=== PATIENT | male | born 1960 | race Caucasian/White ===

== ENCOUNTER 2019-12-13 14:23 | Emergency (ER) | payer BC, OTHER ==
[2019-12-13 15:34] VITALS: BP 117/71; PULSE 76
--- NOTE | 2019-12-13 16:01 | EDM.PDOC ---
ED HPI GENERAL MEDICAL PROBLEM - General Chief Complaint: Respiratory Problem Stated Complaint: COVID +/SOB Time Seen by Provider: 12/13/19 14:34 Source of Information: Reports: Patient History Limitations: Reports: No Limitations - History of Present Illness INITIAL COMMENTS - FREE TEXT/NARRATIVE: Patient is a 59-year-old male presenting to the emergency department with compla ints of cough and shortness of breath with a known diagnosis of COVID-19. Patient states he was diagnosed as Covid +7 days ago. Initial symptoms started as body aches and fatigue. He gradually developed a cough and states since yesterday that he feels more short of breath and left-sided rib pain with deep breathing. He has had intermittent fevers throughout the course, however does not have documentation of how high they went. He denies any abdominal pain, nausea, vomiting, or diarrhea. He has not lost his taste or smell. Appetite is per normal. He denies any underlying chronic medical conditions. Vital signs in triage were stable. Patient's oxygen saturation is 97% on room air. He is afebrile at 97.2. Pulse 85, respiratory rate 16, blood pressure 137/83. - Related Data Allergies Allergy/AdvReac Type Severity Reaction Status Date / Time No Known Allergies Allergy Verified 12/13/19 14:35 Home Meds: Home Meds Cephalexin [Keflex] 250 mg PO DAILY 03/08/15 [History] Past Medical History Musculoskeletal History: Reports: Fracture - Infectious Disease History Infectious Disease History: Reports: Novel Coronavirus - Past Surgical History HEENT Surgical History: Reports: Tonsillectomy GI Surgical History: Reports: Hernia, Inguinal Musculoskeletal Surgical History: Reports: Arthroscopic Knee Social & Family History - Tobacco Use Tobacco Use Status *Q: Never Tobacco User Second Hand Smoke Exposure: No - Recreational Drug Use Recreational Drug Use: No ED ROS GENERAL - Review of Systems Review Of Systems: See Below Constitutional: Reports: Fever, Chills, Fatigue HEENT: Reports: No Symptoms Respiratory: Reports: Shortness of Breath, Pleuritic Chest Pain (Left-sided), Cough, Sputum. Denies: Wheezing Endocrine: Reports: No Symptoms GI/Abdominal: Reports: No Symptoms : Reports: No Symptoms Musculoskeletal: Reports: Other (Generalized body aches) Skin: Reports: No Symptoms Neurological: Reports: No Symptoms Psychiatric: Reports: No Symptoms Hematologic/Lymphatic: Reports: No Symptoms Immunologic: Reports: No Symptoms ED EXAM, GENERAL - Physical Exam Exam: See Below General Appearance: Alert, WD/WN, No Apparent Distress Respiratory/Chest: No Respiratory Distress, Lungs Clear, Normal Breath Sounds, No Accessory Muscle Use, Chest Non-Tender Cardiovascular: Normal Peripheral Pulses, Regular Rate, Rhythm, No Edema, No Gallop, No JVD, No Murmur, No Rub GI/Abdominal: Normal Bowel Sounds, Soft, Non-Tender, No Organomegaly, No Distention, No Abnormal Bruit, No Mass Neurological: Alert, Oriented, CN II-XII Intact, Normal Cognition, Normal Gait, Normal Reflexes, No Motor/Sensory Deficits Psychiatric: Normal Affect, Normal Mood Course - Vital Signs Last Recorded V/S: Last Vital Signs Temp 97.2 F 12/13/19 14:33 Pulse 76 12/13/19 15:30 Resp 16 12/13/19 14:33 BP 117/71 12/13/19 15:30 Pulse Ox 96 12/13/19 15:30 - Orders/Labs/Meds Orders: Active Orders 24 hr Category Date Time Status EKG Documentation Completion [RC] STAT Care 12/13/19 14:43 Active Chest 1V Frontal [CR] Stat Exams 12/13/19 14:36 Taken FERRITIN [CHEM] Routine Lab 12/13/19 15:10 Received Labs: Laboratory Tests 12/13/19 12/13/19 12/13/19 Range/Units 15:10 15:10 15:10 WBC 8.68 (4.23-9.07) K/mm3 RBC 4.89 (4.63-6.08) M/mm3 Hgb 15.7 (13.7-17.5) gm/dl Hct 46.1 (40.1-51.0) % MCV 94.3 H (79.0-92.2) fl MCH 32.1 (25.7-32.2) pg MCHC 34.1 (32.2-35.5) g/dl RDW Std Deviation 42.1 (35.1-43.9) fL Plt Count 202 (163-337) K/mm3 MPV 10.1 (9.4-12.3) fl Neut % (Auto) 80.1 H (34.0-67.9) % Lymph % (Auto) 10.1 L (21.8-53.1) % Tate % (Auto) 9.4 (5.3-12.2) % Eos % (Auto) 0.1 L (0.8-7.0) Baso % (Auto) 0.1 (0.1-1.2) % Neut # (Auto) 6.94 H (1.78-5.38) K/mm3 Lymph # (Auto) 0.88 L (1.32-3.57) K/mm3 Tate # (Auto) 0.82 (0.30-0.82) K/mm3 Eos # (Auto) 0.01 L (0.04-0.54) K/mm3 Baso # (Auto) 0.01 (0.01-0.08) K/mm3 D-Dimer, Quantitative 0.26 (0.19-0.50) mg/L Sodium 137 (136-145) mEq/L Potassium 3.7 (3.5-5.1) mEq/L Chloride 100 (98-107) mEq/L Carbon Dioxide 29 (21-32) mEq/L Anion Gap 11.7 (5-15) BUN 14 (7-18) mg/dL Creatinine 1.1 (0.7-1.3) mg/dL Est Cr Clr Drug Dosing 77.01 mL/min Estimated GFR (MDRD) > 60 (>60) mL/min BUN/Creatinine Ratio 12.7 L (14-18) Glucose 110 H (74-106) mg/dL Lactic Acid (0.4-2.0) mmol/L Calcium 8.7 (8.5-10.1) mg/dL Total Bilirubin 1.0 (0.2-1.0) mg/dL AST 13 L (15-37) U/L ALT 38 (16-63) U/L Alkaline Phosphatase 50 (46-116) U/L Troponin I < 0.017 (0.00-0.056) ng/mL C-Reactive Protein 10.2 H* (<1.0) mg/dL Total Protein 7.4 (6.4-8.2) g/dl Albumin 3.4 (3.4-5.0) g/dl Globulin 4.0 gm/dL Albumin/Globulin Ratio 0.9 L (1-2) 10/24/20 Range/Units 15:10 WBC (4.23-9.07) K/mm3 RBC (4.63-6.08) M/mm3 Hgb (13.7-17.5) gm/dl Hct (40.1-51.0) % MCV (79.0-92.2) fl MCH (25.7-32.2) pg MCHC (32.2-35.5) g/dl RDW Std Deviation (35.1-43.9) fL Plt Count (163-337) K/mm3 MPV (9.4-12.3) fl Neut % (Auto) (34.0-67.9) % Lymph % (Auto) (21.8-53.1) % Tate % (Auto) (5.3-12.2) % Eos % (Auto) (0.8-7.0) Baso % (Auto) (0.1-1.2) % Neut # (Auto) (1.78-5.38) K/mm3 Lymph # (Auto) (1.32-3.57) K/mm3 Tate # (Auto) (0.30-0.82) K/mm3 Eos # (Auto) (0.04-0.54) K/mm3 Baso # (Auto) (0.01-0.08) K/mm3 D-Dimer, Quantitative (0.19-0.50) mg/L Sodium (136-145) mEq/L Potassium (3.5-5.1) mEq/L Chloride (98-107) mEq/L Carbon Dioxide (21-32) mEq/L Anion Gap (5-15) BUN (7-18) mg/dL Creatinine (0.7-1.3) mg/dL Est Cr Clr Drug Dosing mL/min Estimated GFR (MDRD) (>60) mL/min BUN/Creatinine Ratio (14-18) Glucose (74-106) mg/dL Lactic Acid 1.5 (0.4-2.0) mmol/L Calcium (8.5-10.1) mg/dL Total Bilirubin (0.2-1.0) mg/dL AST (15-37) U/L ALT (16-63) U/L Alkaline Phosphatase (46-116) U/L Troponin I (0.00-0.056) ng/mL C-Reactive Protein (<1.0) mg/dL Total Protein (6.4-8.2) g/dl Albumin (3.4-5.0) g/dl Globulin gm/dL Albumin/Globulin Ratio (1-2) - Re-Assessments/Exams Free Text/Narrative Re-Assessment/Exam: Patient is a 59-year-old male presenting to the emergency department with complaints of worsening shortness of breath and left-sided chest discomfort with breathing with a known diagnosis of COVID-19. Oxygen saturations on room air were 97%. I have ordered a chest x-ray, CBC, CMP, CRP, D-dimer, troponin, ferritin, LDH, EKG. 12/13/19 15:58 Chest x-ray showed small multiple right-sided infiltrates. Hematology was grossly unremarkable with the exception of CRP being elevated at 10.2. Troponin and D-dimer were both negative. Patient has maintain oxygen saturation between 95 and 98% on room air throughout his stay in the ER. Discussed I would recommend that he purchase a home pulse oximeter to monitor his oxygen saturations. He may otherwise continue symptomatic treatment including Tylenol and ibuprofen as needed. Discussed return precautions. Discharge instructions as documented. Departure - Departure Time of Disposition: 16:01 Disposition: Home, Self-Care 01 Condition: Good Clinical Impression: COVID-19 - Discharge Information *PRESCRIPTION DRUG MONITORING PROGRAM REVIEWED*: No *COPY OF PRESCRIPTION DRUG MONITORING REPORT IN PATIENT ROWENA: No Instructions: COVID-19 Frequently Asked Questions, COVID-19 Referrals: PCP,None [Primary Care Provider] - Additional Instructions: You were seen in the emergency department for shortness of breath and left-sided rib pain with deep breathing with a known diagnosis of COVID-19. Your work-up included a chest x-ray, EKG of your heart, and blood work. Results of your work-up were found to be overall normal in light of your diagnosis of COVID-19. There are a couple small infiltrates in your right lung which be consistent with a mild viral pneumonia. Your oxygen saturation throughout your stay in the ER was normal. I would recommend that you purchase a home pulse oximeter to monitor your oxygen saturations at home as this is your best indicator of how you are doing overall. You may call up to [facility] to see if they have them available. If [facility] does not have one available, most [facility], [facility], and [facility] also carry them. Recommend that you check your oxygen saturations intermittently throughout the day. If you are maintaining an oxygen saturation below 90%, this indicates that you are hypoxic and should seek medical attention. If you experience any other new or worsening symptoms of concern, please do not hesitate to return to the emergency department for reevaluation. Sepsis Event Note (ED) - Evaluation Sepsis Screening Result: No Definite Risk - Focused Exam Vital Signs: Vital Signs Temp Pulse Resp BP Pulse Ox 12/13/19 15:30 76 117/71 96 12/13/19 14:33 97.2 F 85 16 137/83 97 - My Orders Last 24 Hours: My Active Orders 12/13/19 14:36 Chest 1V Frontal [CR] Stat 12/13/19 14:43 EKG Documentation Completion [RC] STAT 12/13/19 15:10 FERRITIN [CHEM] Routine - Assessment/Plan Last 24 Hours: My Active Orders 12/13/19 14:36 Chest 1V Frontal [CR] Stat 12/13/19 14:43 EKG Documentation Completion [RC] STAT 12/13/19 15:10 FERRITIN [CHEM] Routine
== END 2019-12-13 16:15 | disposition home or self-care (01) ==
LOC: JD.ED 14:23
DX: U07.1 COVID-19 (principal); Z90.49 Acquired absence of other specified parts of digestive tract
CPT/HCPCS: 36415; 71045; 80053; 82728; 83605; 84484; 85025; 85379; 86140; 93005; 93010; 99282; 99284-25

== ENCOUNTER 2019-12-18 01:22 | Emergency (ER) | payer BC ==
[2019-12-18] MEDS ORDERED: Sodium Chloride 0.9% 10 ML Syringe FLUSH PRN (01:39)
--- NOTE | 2019-12-18 01:43 | EDM.PDOC ---
ED HPI GENERAL MEDICAL PROBLEM - General Chief Complaint: Respiratory Problem Stated Complaint: COVID POS Time Seen by Provider: 12/18/19 01:38 Source of Information: Reports: Patient, RN Notes Reviewed - History of Present Illness INITIAL COMMENTS - FREE TEXT/NARRATIVE: 59 yr old male diagnosed with covid infection about 13 days ago. He became more short of breath last evening and sats at home dropped from mid 90's to around around 87 at home. He has to cough with deep breathing so does try to avoid that. He also feels that he is getting dehydrated. He has no underlying health problems, does not smoke. No appetite, No vomiting or diarrhea. Left Lower Abdomen Pain Score (Numeric/FACES): 6 - Related Data Allergies Allergy/AdvReac Type Severity Reaction Status Date / Time No Known Allergies Allergy Verified 12/18/19 01:30 Home Meds: Home Meds Acetaminophen/HYDROcodone [[place] 325-5 MG] 1 tab PO Q4H PRN #14 tablet 12/18/19 [Rx] Past Medical History Musculoskeletal History: Reports: Fracture - Infectious Disease History Infectious Disease History: Reports: Novel Coronavirus - Past Surgical History HEENT Surgical History: Reports: Tonsillectomy GI Surgical History: Reports: Appendectomy, Hernia, Inguinal Musculoskeletal Surgical History: Reports: Arthroscopic Knee Social & Family History - Tobacco Use Tobacco Use Status *Q: Never Tobacco User - Caffeine Use Caffeine Use: Reports: None - Recreational Drug Use Recreational Drug Use: No ED ROS GENERAL - Review of Systems Review Of Systems: See Below Constitutional: Reports: Fever (low grade), Chills HEENT: Reports: Rhinitis Respiratory: Reports: Shortness of Breath, Pleuritic Chest Pain, Cough Cardiovascular: Reports: Lightheadedness GI/Abdominal: Reports: Decreased Appetite. Denies: Abdominal Pain, Nausea, Vomiting Musculoskeletal: Reports: Other Skin: Denies: Rash Neurological: Reports: Dizziness, Headache ED EXAM, GENERAL - Physical Exam Exam: See Below General Appearance: Alert, No Apparent Distress Head: Atraumatic Neck: Supple Respiratory/Chest: No Respiratory Distress, Lungs Clear, Normal Breath Sounds. No: Rhonchi, Wheezing Cardiovascular: Regular Rate, Rhythm GI/Abdominal: Non-Tender Extremities: Normal Range of Motion. No: Pedal Edema, Leg Pain, Redness Neurological: Alert, Oriented, No Motor/Sensory Deficits Skin Exam: Warm, Dry, Normal Color #1 Interpretation EKG Date: 12/18/19 Rhythm: NSR Meredith: Normal P-Wave: Present QRS: Normal ST-T: Normal Course - Vital Signs Last Recorded V/S: Last Vital Signs Temp 99.1 F 12/18/19 01:27 Pulse 65 12/18/19 05:00 Resp 16 12/18/19 02:45 BP 121/67 12/18/19 05:00 Pulse Ox 91 L 12/18/19 05:00 - Orders/Labs/Meds Orders: Active Orders 24 hr Category Date Time Status EKG 12 Lead [EKG Documentation Completion] [RC] ROUTINE Care 12/18/19 01:25 Active Oxygen Therapy [RC] ASDIRECTED Care 12/18/19 01:39 Active Peripheral IV Care [RC] . DIRECTED Care 12/18/19 01:40 Active Chest 1V Frontal [CR] Stat Exams 12/18/19 01:38 Taken Acetaminophen/HYDROcodone [[place] 325-5 MG] Med 12/18/19 06:29 Once 1 tab PO ONETIME ONE Sodium Chloride 0.9% [Normal Saline] 1,000 ml Med 12/18/19 02:45 Active IV ONETIME Sodium Chloride 0.9% [Saline Flush] Med 12/18/19 01:39 Active 10 ml FLUSH ASDIRECTED PRN Peripheral IV Insertion Adult [OM.PC] Stat Oth 12/18/19 01:39 Ordered Medication Orders Sodium Chloride (Normal Saline) 1,000 mls @ 999 mls/hr IV ONETIME NICOLE Last Admin: 12/18/19 02:46 Dose: 999 mls/hr Documented by: ELIZABETH Sodium Chloride (Saline Flush) 10 ml FLUSH ASDIRECTED PRN PRN Reason: Keep Vein Open Last Admin: 12/18/19 01:56 Dose: 10 ml Documented by: ELIZABETH Labs: Laboratory Tests 12/18/19 12/18/19 12/18/19 Range/Units 01:35 01:35 01:35 WBC 6.35 (4.23-9.07) K/mm3 RBC 4.74 (4.63-6.08) M/mm3 Hgb 15.2 (13.7-17.5) gm/dl Hct 43.6 (40.1-51.0) % MCV 92.0 (79.0-92.2) fl MCH 32.1 (25.7-32.2) pg MCHC 34.9 (32.2-35.5) g/dl RDW Std Deviation 41.3 (35.1-43.9) fL Plt Count 288 D (163-337) K/mm3 MPV 9.7 (9.4-12.3) fl Neut % (Auto) 79.4 H (34.0-67.9) % Lymph % (Auto) 11.7 L (21.8-53.1) % Lamb % (Auto) 8.0 (5.3-12.2) % Eos % (Auto) 0.3 L (0.8-7.0) Baso % (Auto) 0.3 (0.1-1.2) % Neut # (Auto) 5.04 (1.78-5.38) K/mm3 Lymph # (Auto) 0.74 L (1.32-3.57) K/mm3 Lamb # (Auto) 0.51 (0.30-0.82) K/mm3 Eos # (Auto) 0.02 L (0.04-0.54) K/mm3 Baso # (Auto) 0.02 (0.01-0.08) K/mm3 Manual Slide Review Abnormal smear D-Dimer, Quantitative (0.19-0.50) mg/L Sodium 136 (136-145) mEq/L Potassium 3.3 L (3.5-5.1) mEq/L Chloride 98 (98-107) mEq/L Carbon Dioxide 24 (21-32) mEq/L Anion Gap 17.3 H (5-15) BUN 15 (7-18) mg/dL Creatinine 1.0 (0.7-1.3) mg/dL Est Cr Clr Drug Dosing 84.71 mL/min Estimated GFR (MDRD) > 60 (>60) mL/min BUN/Creatinine Ratio 15.0 (14-18) Glucose 114 H (74-106) mg/dL Calcium 8.5 (8.5-10.1) mg/dL Ferritin (26-388) ng/ml Total Bilirubin 0.6 (0.2-1.0) mg/dL AST 68 H (15-37) U/L ALT 82 H (16-63) U/L Alkaline Phosphatase 60 (46-116) U/L Lactate Dehydrogenase 311 H (85-227) U/L C-Reactive Protein 11.7 H* (<1.0) mg/dL Total Protein 7.5 (6.4-8.2) g/dl Albumin 2.8 L (3.4-5.0) g/dl Globulin 4.7 gm/dL Albumin/Globulin Ratio 0.6 L (1-2) 12/18/19 12/18/19 Range/Units 01:35 01:35 WBC (4.23-9.07) K/mm3 RBC (4.63-6.08) M/mm3 Hgb (13.7-17.5) gm/dl Hct (40.1-51.0) % MCV (79.0-92.2) fl MCH (25.7-32.2) pg MCHC (32.2-35.5) g/dl RDW Std Deviation (35.1-43.9) fL Plt Count (163-337) K/mm3 MPV (9.4-12.3) fl Neut % (Auto) (34.0-67.9) % Lymph % (Auto) (21.8-53.1) % Lamb % (Auto) (5.3-12.2) % Eos % (Auto) (0.8-7.0) Baso % (Auto) (0.1-1.2) % Neut # (Auto) (1.78-5.38) K/mm3 Lymph # (Auto) (1.32-3.57) K/mm3 Lamb # (Auto) (0.30-0.82) K/mm3 Eos # (Auto) (0.04-0.54) K/mm3 Baso # (Auto) (0.01-0.08) K/mm3 Manual Slide Review D-Dimer, Quantitative 1.08 H (0.19-0.50) mg/L Sodium (136-145) mEq/L Potassium (3.5-5.1) mEq/L Chloride (98-107) mEq/L Carbon Dioxide (21-32) mEq/L Anion Gap (5-15) BUN (7-18) mg/dL Creatinine (0.7-1.3) mg/dL Est Cr Clr Drug Dosing mL/min Estimated GFR (MDRD) (>60) mL/min BUN/Creatinine Ratio (14-18) Glucose (74-106) mg/dL Calcium (8.5-10.1) mg/dL Ferritin 4746 H (26-388) ng/ml Total Bilirubin (0.2-1.0) mg/dL AST (15-37) U/L ALT (16-63) U/L Alkaline Phosphatase (46-116) U/L Lactate Dehydrogenase (85-227) U/L C-Reactive Protein (<1.0) mg/dL Total Protein (6.4-8.2) g/dl Albumin (3.4-5.0) g/dl Globulin gm/dL Albumin/Globulin Ratio (1-2) Meds: Medications Generic Name Dose Route Start Last Admin Trade Name Freq PRN Reason Stop Dose Admin Sodium Chloride 1,000 mls @ 999 mls/hr 12/18/19 02:45 12/18/19 02:46 Normal Saline IV 999 mls/hr ONETIME NICOLE Administration Sodium Chloride 10 ml 12/18/19 01:39 12/18/19 01:56 Saline Flush FLUSH 10 ml ASDIRECTED PRN Administration Keep Vein Open - Re-Assessments/Exams Free Text/Narrative Re-Assessment/Exam: 12/18/19 03:30. Was strongly considering hospital admission with change in condition over the last day, sats running 85 to 88 percent at home [employer], 90 on arrival to ED, CXR shows bilat infiltrates, not severe but increased from CXR of 5 days ago. However sats have now been improving with sats now running in the 94 to 95 % range. Will observe him for a few hours, give some cautious IV fluid, he feels dehydrated and than make disposition decision around 6:30 AM. 12/18/19 06:12. Sats running 91 to 93 % room air. He really is not a candidate for hospital admission at this time. Will discuss giving him a hydrocodone to help relieve the pain of deep breathing and send a prescription to use as needed. Departure - Departure Time of Disposition: 06:30 Disposition: Home, Self-Care 01 Condition: Fair Clinical Impression: Pneumonia due to COVID-19 virus - Discharge Information Prescriptions: Acetaminophen/HYDROcodone [[place] 325-5 MG] 1 tab PO Q4H PRN #14 tablet PRN Reason: Pain Referrals: PCP,None [Primary Care Provider] - Forms: ED Department Discharge Additional Instructions: Continue to rest. Drink plenty of water to maintain hydration. Tylenol q 6 to 8 hr for mild to moderate discomfort or hydrocodone 1 tab q 4 to 6 hr for more severe discomfort. That should help you take deep breaths, try take a few deep breaths every 1 to 2 hrs while awake to help open up the small air pockets of your lungs to help you oxygenate better. Return to ED if you feel like you are not getting enough air or if symptoms otherwise worsening in any way. Sepsis Event Note (ED) - Evaluation Sepsis Screening Result: No Definite Risk - Focused Exam Vital Signs: Vital Signs Temp Pulse Resp BP Pulse Ox Pulse Ox 12/18/19 05:00 65 121/67 91 L 12/18/19 02:45 70 16 117/81 94 L 12/18/19 01:39 94 L 12/18/19 01:27 99.1 F 64 18 136/68 89 L - My Orders Last 24 Hours: My Active Orders 12/18/19 01:25 EKG 12 Lead [EKG Documentation Completion] [RC] ROUTINE 12/18/19 01:38 Chest 1V Frontal [CR] Stat 12/18/19 01:39 Oxygen Therapy [RC] ASDIRECTED Sodium Chloride 0.9% [Saline Flush] 10 ml FLUSH ASDIRECTED PRN Peripheral IV Insertion Adult [OM.PC] Stat 12/18/19 01:40 Peripheral IV Care [RC] . DIRECTED 12/18/19 02:45 Sodium Chloride 0.9% [Normal Saline] 1,000 ml IV ONETIME 12/18/19 06:29 Acetaminophen/HYDROcodone [[place] 325-5 MG] 1 tab PO ONETIME ONE - Assessment/Plan Last 24 Hours: My Active Orders 12/18/19 01:25 EKG 12 Lead [EKG Documentation Completion] [RC] ROUTINE 12/18/19 01:38 Chest 1V Frontal [CR] Stat 12/18/19 01:39 Oxygen Therapy [RC] ASDIRECTED Sodium Chloride 0.9% [Saline Flush] 10 ml FLUSH ASDIRECTED PRN Peripheral IV Insertion Adult [OM.PC] Stat 12/18/19 01:40 Peripheral IV Care [RC] . DIRECTED 12/18/19 02:45 Sodium Chloride 0.9% [Normal Saline] 1,000 ml IV ONETIME 12/18/19 06:29 Acetaminophen/HYDROcodone [[place] 325-5 MG] 1 tab PO ONETIME ONE
[2019-12-18] MEDS ORDERED: Sodium Chloride 0.9% 1,000 ML IV SCH (02:45)
[2019-12-18] MEDS ORDERED: Acetaminophen/HYDROcodone 325-5 MG Tab PO ONE (06:29)
[2019-12-18 06:35] VITALS: BP 113/84; PULSE 62
--- NOTE | 2019-12-18 14:05 | CR ---
PROCEDURE INFORMATION: Exam: XR Chest, 1 View Exam date and time: 12/18/2019 1:32 AM Age: 59 years old Clinical indication: Cough and dyspnea and other: Hypoxia; Patient HX: Covid positive TECHNIQUE: Imaging protocol: XR of the chest Views: 1 view. COMPARISON: CR Chest 1V Frontal 12/13/2019 2:25 PM FINDINGS: Lungs: There are multifocal airspace opacities in the perihilar region and bilateral lung bases new on the left and increased on the right compared to 12/13/2019. Pleural space: Unremarkable. No pleural effusion. No pneumothorax. Heart/Mediastinum: Unremarkable. No cardiomegaly. Bones/joints: Postoperative changes from prior lower cervical spine fusion. IMPRESSION: Multifocal airspace opacities bilaterally new on the left and increased on the right compared to 12/13/2019. Differential considerations include multifocal pneumonia, either bacterial or viral. Stat report submitted to the referring service. Thank you for allowing us to participate in the care of your patient. Dictated and Authenticated by: Latisha Alfonso MD 12/18/2019 3:28 AM Central Time ([place] & [place]) MTDD
== END 2019-12-18 06:50 | disposition home or self-care (01) ==
LOC: JD.ED 01:22
DX: U07.1 COVID-19 (principal); J12.89 Other viral pneumonia
CPT/HCPCS: 36415; 71045; 80053; 82728; 83615; 85025; 85379; 86140; 93005; 99285; A9270; J7030; 93010; 99284

== ENCOUNTER 2020-04-08 08:19 | Day surgery (SDC) | payer BC ==
[~2020-04-08 08:19] MED LIST: Acetaminophen 325 MG Tab PO SCH; Lidocaine 1%/Sod Bicarbonate in NS 8.4% 1 ML Syringe IDERM PRN; Morphine 8 MG, EPINEPHrine 0.3 MG, Cefuroxime 750 MG, Ketorolac 30 MG, Sodium Chloride ... PRN; Pregabalin 25 MG Cap PO SCH; Sodium Chloride 0.9% 10 ML Syringe FLUSH PRN; oxyCODONE ER 10 MG TAB.ER PO SCH
[2020-04-08] MEDS: Lactated Ringers 1,000 ML IV SCH ×2 (08:40→14:05)
[2020-04-08] MEDS ORDERED: Scopolamine 1.5 MG Transdermal Patch TOP ONE (08:44)
--- NOTE | 2020-04-08 09:05 | PCM.PREANE ---
Preanesthetic Assessment - Procedure Proposed Procedure: Right knee replacement - Anesthesia/Transfusion/Family Hx Anesthesia History: Prior Anesthesia Reaction (nausea) Family History of Anesthesia Reaction: No Transfusion History: No Prior Transfusion(s) - Review of Systems General: No Symptoms Pulmonary: No Symptoms, Shortness of Breath Cardiovascular: No Symptoms Gastrointestinal: No Symptoms Neurological: No Symptoms Other: Reports: None - Physical Assessment NPO Status Date: 04/07/20 NPO Status Time: 00:00 Height: 1.8 m Weight: 87 kg ASA Class: 2 Mental Status: Alert & Oriented x3 Airway Class: Mallampati = 1 Dentition: Reports: Normal Dentition, Eccles(s) Thyro-Mental Finger Breadths: 3 Mouth Opening Finger Breadths: 3 ROM/Head Extension: Full Lungs: Clear to Auscultation, Normal Respiratory Effort Cardiovascular: Regular Rate, Regular Rhythm - Lab Values: Laboratory Last Values MRSA (PCR) Negative 03/19/20 09:32 - Imaging/EKG Impressions: EKG SR rate 61 - Allergies Allergies/Adverse Reactions: Allergies Allergy/AdvReac Type Severity Reaction Status Date / Time No Known Allergies Allergy Verified 04/07/20 14:12 - Anesthesia Plan Pre-Op Medication Ordered: None - Acknowledgements Anesthesia Type Planned: Spinal, Regional Block (femoral block for post-op pain) Pt an Appropriate Candidate for the Planned Anesthesia: Yes Alternatives and Risks of Anesthesia Discussed w Pt/Guardian: Yes Pt/Guardian Understands and Agrees with Anesthesia Plan: Yes PreAnesthesia Questionnaire HEENT History: Reports: None Cardiovascular History: Reports: None Respiratory History: Reports: None Genitourinary History: Reports: None REINFORCED IRONWORKER History: Reports: None Musculoskeletal History: Reports: Fracture Neurological History: Reports: None Psychiatric History: Reports: None Endocrine/Metabolic History: Reports: None Hematologic History: Reports: None Immunologic History: Reports: None Oncologic (Cancer) History: Reports: None Dermatologic History: Reports: None - Infectious Disease History Infectious Disease History: - Past Surgical History Head Surgeries/Procedures: Reports: None HEENT Surgical History: Reports: Tonsillectomy Cardiovascular Surgical History: Reports: None Respiratory Surgical History: Reports: None GI Surgical History: Reports: Appendectomy, Hernia, Inguinal Female Surgical History: Reports: None Male Surgical History: Reports: None Endocrine Surgical History: Reports: None Neurological Surgical History: Reports: C-Spine Musculoskeletal Surgical History: Reports: Arthroscopic Knee, Shoulder Surgery Oncologic Surgical History: Reports: None Dermatological Surgical History: Reports: None - SUBSTANCE USE Tobacco Use Status *Q: Never Tobacco User Tobacco Use Within Last Twelve Months: No Second Hand Smoke Exposure: No Days Per Week of Alcohol Use: 1 Number of Drinks Per Day: 7 Total Drinks Per Week: 7 Recreational Drug Use History: No - HOME MEDS Home Medications: Home Meds Acetaminophen/HYDROcodone [[place] 325-5 MG] 1 - 2 tab PO Q6H PRN #40 tablet 04/07/20 [Rx] Aspirin [Aspirin EC] 325 mg PO BID #84 tab 04/07/20 [Rx] Cyclobenzaprine [Flexeril] 10 mg PO BID PRN #20 tab 04/07/20 [Rx] - CURRENT (IN HOUSE) MEDS Current Meds: Current Medications Acetaminophen (Tylenol) 975 mg PO ONETIME NICOLE Stop: 04/08/20 13:00 Last Admin: 04/08/20 08:48 Dose: 975 mg Documented by: Morphine Sulfate 8 mg/Epinephrine HCl 0.3 mg/Cefuroxime Sodium 750 mg/Ketorolac Tromethamine 30 mg/Sodium Chloride 7.9 ml 0 mg .XX ASDIRECTED PRN PRN Reason: Pain Stop: 04/08/20 18:00 Lactated Ringer's (Ringers, Lactated) 1,000 mls @ 125 mls/hr IV ASDIRECTED NICOLE Stop: 04/08/20 23:00 Last Admin: 04/08/20 08:40 Dose: 125 mls/hr Documented by: Lidocaine/Sodium Bicarbonate (Buffered Lidocaine 1% In Ns 8.4%) 0.25 ml IDERM ONETIME PRN PRN Reason: Prior to IV Start Stop: 04/08/20 18:00 Last Admin: 04/08/20 08:40 Dose: 0.25 ml Documented by: Oxycodone HCl (Oxycontin) 10 mg PO ONETIME NICOLE Stop: 04/08/20 13:00 Last Admin: 04/08/20 08:46 Dose: 10 mg Documented by: Pregabalin (Lyrica) 50 mg PO ONETIME NICOLE Stop: 04/08/20 13:00 Last Admin: 04/08/20 08:46 Dose: 50 mg Documented by: Sodium Chloride (Saline Flush) 10 ml FLUSH ASDIRECTED PRN PRN Reason: Keep Vein Open Stop: 04/08/20 18:00 Discontinued Medications Scopolamine (Transderm-Scop) 1.5 mg TOP ONETIME ONE Stop: 04/08/20 08:45
[2020-04-08] MEDS ORDERED: Ondansetron 4 MG/2 ML SDV ONE (09:18)
[2020-04-08] MEDS ORDERED: Lidocaine 1% 4 ML ONE (09:18)
[2020-04-08] MEDS ORDERED: fentaNYL 100 MCG/2 ML SDV ONE (09:18)
[2020-04-08] MEDS ORDERED: Midazolam 1 MG/ML 2 ML SDV ONE (09:18)
[2020-04-08] MEDS ORDERED: Propofol 200 MG/20 ML SDV ONE ×4 (09:18→10:45)
[2020-04-08] MEDS ORDERED: Vancomycin 1 GM SDV ONE (09:51)
[2020-04-08] MEDS ORDERED: ceFAZolin 1 GM Vial ONE (09:51)
[2020-04-08] MEDS ORDERED: Lactated Ringers 1,000 ML ONE (09:54)
[2020-04-08] MEDS ORDERED: Ketorolac 30 MG/ML SDV ONE (10:04)
[2020-04-08] MEDS ORDERED: ePHEDrine 50 MG/ML SDV ONE (10:55)
--- NOTE | 2020-04-08 11:24 | PCM.POSTAN ---
POST ANESTHESIA ASSESSMENT - MENTAL STATUS Mental Status: Alert, Oriented - VITAL SIGNS Vital Signs: Last Vital Signs Temp 36.6 C 04/08/20 08:15 Pulse 59 L 04/08/20 08:15 Resp 18 04/08/20 08:15 BP 131/72 04/08/20 08:15 Pulse Ox 98 04/08/20 08:15 - RESPIRATORY Respiratory Status: Respiratory Rate WNL, Airway Patent, O2 Saturation Stable, Supplemental Oxygen - CARDIOVASCULAR CV Status: Pulse Rate WNL, Blood Pressure Stable - GASTROINTESTINAL GI Status: No Symptoms - PAIN Pain Score: 0 - POST OP HYDRATION Hydration Status: Adequate & Stable - OBSERVATIONS Free Text/Narrative:: no anesthesia complications noted
[2020-04-08] MEDS ORDERED: Ropivacaine 0.5% 5 MG/ML 30 ML SDV ONE (11:28)
--- NOTE | 2020-04-08 11:48 | PCM.SN.2 ---
- Free Text/Narrative Note: Reft selective femoral nerve block at the adductor canal for post-procedure pain control under US guidance requested by Dr. Galvan. Time Out: 1135 Start: 1135 End: 1141 Chart reviewed. Consent signed. Questions answered. Appropriate monitors applied. Time out performed. Right mid-shaft femur identified with ultrasound, scanning medially of femur, the femoral artery in the adductor canal visualized, and the femoral nerve located laterally to the artery. The skin was prepped lateral to the ultrasound probe with chlorahexadine times two. The 21ga 4 insulated block needle was inserted under direct ultrasound guidance into the adductor canal. 25mL of 0.5% ropivacaine with 1:200,000 epinephrine was injected circumferentially around the nerve with intermittent negative aspiration noted. Patient tolerated the procedure well. Sterile technique noted along with sterile gloves, mask, and sterile probe cover. See picture on progress note and vital signs on nurses notes. Block completed in PACU. Jenaro Warren CRNA
--- NOTE | 2020-04-08 12:26 | CR ---
Right knee: AP and crosstable lateral views of the right knee were obtained. Comparison: Prior CT knee study of 03/26/20. Findings: Knee prosthesis is seen. Patellar component is also noted. Components are aligned. Soft tissue air is noted from the procedure. No acute osseous abnormality is appreciated. Impression: 1. Satisfactory postop radiographic appearance of recently placed right knee prosthesis. Diagnostic code #2
[2020-04-08] MEDS ORDERED: Acetaminophen/HYDROcodone 325-5 MG Tab PO PRN (13:04)
--- NOTE | 2020-04-08 13:16 | PCM48HPAN ---
Post Anesthesia Note - EVALUATION WITHIN 48HRS OF ANESTHETIC Vital Signs in Normal Range: Yes Patient Participated in Evaluation: Yes Respiratory Function Stable: Yes Airway Patent: Yes Cardiovascular Function Stable: Yes Hydration Status Stable: Yes Pain Control Satisfactory: Yes Nausea and Vomiting Control Satisfactory: Yes Mental Status Recovered: Yes Vital Signs: Last Vital Signs Temp 36.6 C 04/08/20 11:16 Pulse 54 L 04/08/20 12:30 Resp 16 04/08/20 12:30 BP 130/80 04/08/20 12:30 Pulse Ox 94 L 04/08/20 12:30 - COMMENTS/OBSERVATIONS Free Text/Narrative:: no anesthesia complications noted
[2020-04-08] MEDS ORDERED: Haloperidol Lactate 5 MG/ML SDV IVPUSH STA (13:19)
[2020-04-08] MEDS: fentaNYL 100 MCG/2 ML SDV IVPUSH PRN ×2 (13:29→13:53)
[2020-04-08] MEDS ORDERED: Prochlorperazine 5 MG in Sodium Chloride 0.9% 50 ML IV ONE (13:33)
[2020-04-08] MEDS ORDERED: Prochlorperazine 10 MG/2 ML SDV IVPUSH ONE (13:45)
[2020-04-08] MEDS ORDERED: Cyclobenzaprine 10 MG Tab PO ONE (15:46)
[2020-04-08 16:01] VITALS: BP 116/60; PULSE 67
--- NOTE | 2020-04-19 17:49 | PCM.OPNOTE ---
- General Post-Op/Procedure Note Date of Surgery/Procedure: 04/08/20 Operative Procedure(s): right total knee arthroplasty with make robotics Pre Op Diagnosis: right knee osteoarthrosis Post-Op Diagnosis: Same Anesthesia Technique: Local, MAC, Spinal Primary Surgeon: Avelino Galvan Anesthesia Provider: Jenaro Warren Tile Designer: Renee Trevino Tile Designer: Lesley Post EBL in mLs: 150 Complications: None Condition: Good Free Text/Narrative:: 06/23 9mm 35x10
--- NOTE | 2020-04-19 19:20 | OR ---
DATE OF OPERATION: 04/08/2020 SURGEON: Avelino Galvan MD OPERATION PERFORMED: Right total knee arthroplasty with Myles robotics. PREOPERATIVE DIAGNOSIS: Right knee osteoarthrosis. POSTOPERATIVE DIAGNOSIS: Right knee osteoarthrosis. ANESTHESIA: Local MAC with spinal. ANESTHESIA PROVIDER: Jenaro Warren CRNA ASSISTANTS: Renee Trevino PA-C, and Lesley Post LPN. ESTIMATED BLOOD LOSS: 150 mL. COMPLICATIONS: None. CONDITION: Stable. IMPLANT: 1. Margot size 5 press-fit CR femur. 2. Margot size 5 press-fit tibial base plate. 3. [place] size 5, 9 mm CS polyethylene. 4. Margot size 35 x 10 mm press-fit asymmetric patella. DESCRIPTION OF PROCEDURE: The patient was identified in the preoperative holding area. The proper site was marked and identified by the surgeon. The patient was taken back to the operating theater, where after adequate anesthesia, the patient had a nonsterile tourniquet applied to the right lower extremity that was sterilely prepped and draped in the usual sterile fashion. An OR time-out was performed. The patient received 2 g IV Ancef. The right lower extremity was exsanguinated. The tourniquet was insufflated to 250 mmHg. A standard anterior incision was made. This was taken down, and a medial parapatellar arthrotomy was created. Deep fibers of the MCL were raised and the anterior fat pad resected. At this time, attention was turned to the patella. The patella measured a 25 and was resected to a 14 for a 35 x 10 mm patella. Drill holes were then drilled and found to be adequate. Next, the femoral array was placed intra-incisionally for the Margot Myles robotics, and the tibial array was then placed, 2 small poke holes roughly 3 fingerbreadths below the level of the tibial tubercle. Hip center of rotation was then obtained after the check points were placed. The medial and lateral malleoli were recorded. At this point, 40 points were taken off both the femur and the tibia for the [place] Myles robotic plan. After this was completed, the patient's knee was brought into full extension, and varus/valgus stresses were placed and captured, and next, it was brought into 90 degrees of flexion, and a Archibald was used for varus/valgus stresses. Once this was done, we were able to do a custom plan of 19 mm gaps for this patient in both flexion and extension. The anterior posterior and anterior and posterior chamfer cuts were completed as well as the tibial cut at this time. All cuts were removed. These were done utilizing the [employer] robotic arm. Medial and lateral menisci were then removed as well as any posterior osteophytes. A size 5 trial base plate was placed as well as a size 5 trial femur. A 9 mm trial was placed, and the patient's knee was brought into full extension and was found to have full extension and no signs of varus/valgus instability in both flexion at 90 degrees and full extension. At this time, the drill holes were drilled in the femur. The tibia was stamped and drilled in the proper rotation. The size 5 press-fit tibial base plate was then impacted in place. The size 5 femoral component was impacted in place. The size 5, 9 mm CS polyethylene insert was impacted in place, and the patient's knee was brought into full extension. A 35 x 10 mm press-fit patella was then press-fit into place. The tourniquet was deflated. All bleeders were cauterized. The femoral and tibial arrays were removed as well as the tibial and femoral check points. 400 mL of IrriSept irrigation was irrigated through the knee along with 1 L pulse lavage irrigation with Ancef. Topical tranexamic acid and vancomycin powder were applied. A #2 barbed suture was used for closure of the medial parapatellar arthrotomy. 2-0 Vicryl as well as Stratafix was used for subcutaneous closure. Prineo was used for skin closure. The patient had a sterile soft dressing applied and was sent to the PACU in stable condition. MMODAL /[id number]
== END 2020-04-08 15:55 | disposition home or self-care (01) ==
LOC: JD.SDS 08:19
PROVIDERS: ATTEND Orthopaedic Surgery
DX: M17.11 Unilateral primary osteoarthritis, right knee (principal); Z98.890 Other specified postprocedural states; Z79.82 Long term (current) use of aspirin; Z79.899 Other long term (current) drug therapy
CPT/HCPCS: 27447; 73560; 87641; 97110; 97116; 97161; 97165; A9270; C1713; C1776; J0171; J0690; J0697; J0780; J1885; J2250; J2270; J2405; J2704; J2795; J3010; J3370; J7120; 01402; 64450